=== PATIENT | male | born 1965 | race African-American/Black ===

== ENCOUNTER → 2016-10-05 | Outpatient (CLI) | payer BC ==
[~2016-10-05] MED LIST: LSNUNK; ZCRUNK
[2016-10-05 12:49] LABS: BASO % 0.4 %; BASO ABS # 0.02 K/uL (0-0.2); COMPLETE YES; EOS % 1.4 %; HEMATOCRIT 39.9 % (42-52); IG% 0.2 %; LYMPH % 25.2 %; LYMPH ABS # 1.29 K/uL (1.2-3.4); MEAN CELL VOLUME 89.9 fL (80-100); MEAN CORPUSCULAR HEMOGLOBIN 30.9 pg (25-34); MEAN CORPUSCULAR HGB CONC 34.3 g/dl (32-36); MEAN PLATELET VOLUME 9.6 fL (7.4-10.4); MONO % 12.5 %; NEUT % 60.3 %; PLATELET COUNT 200 K/uL (130-400); RED BLOOD COUNT 4.44 M/uL (4.7-6.1); WHITE BLOOD COUNT 5.12 K/uL (4.8-10.8)
[2016-10-05 13:19] LABS: BLOOD UREA NITROGEN 13 mg/dl (7-18); CALCIUM 9.1 mg/dl (8.5-10.1); CARBON DIOXIDE 28 mmol/L (21-32); CHLORIDE 103 mmol/L (98-107); CREATININE 0.95 mg/dl (0.60-1.40); GLUCOSE 96 mg/dl (70-99); POTASSIUM 3.7 mmol/L (3.5-5.1); SODIUM 140 mmol/L (136-145)
[2016-10-05 13:22] LABS: ALB/GLOB RATIO 1.1 (0.9-2); ALKALINE PHOSPHATASE 50 U/L (45-117); ALT/SGPT 45 U/L (12-78); AST/SGOT 19 U/L (15-37); CHOLESTEROL 202 mg/dl (0-200); CHOLESTEROL/HDL RATIO 2.5; HDL CHOLESTEROL 82 mg/dl; LDL CHOLESTEROL CALCULATED 100 mg/dl; TRIGLYCERIDES 98 mg/dl (0-150); VERY LOW DENSITY LIPOPROT CALC 20 mg/dl
[2016-10-05 13:23] LABS: ESTIMATED AVERAGE GLUCOSE 123 mg/dl; HA1C FLAG Normal (Normal)
== END | disposition home or self-care (01) ==
LOC: C.LABBFT 08:23
PROVIDERS: ATTEND Internal Medicine
DX: I10 Essential (primary) hypertension (principal)

== ENCOUNTER → 2016-10-12 | Outpatient (CLI) | payer BC ==
--- NOTE | 2016-10-12 10:42 | DIAGNOSTIC IMAGING REPORT ---
BILATERAL CAROTID DOPPLER STUDY HISTORY: Visual change. Hypertension. I10 [id number] Transient wear COMPARISON: None. TECHNIQUE: Real-time, grayscale, and color Doppler sonography of the carotid arteries was performed. Imaging reviewed in the transverse and longitudinal planes. All measurements were calculated based on NASCET criteria. FINDINGS: Antegrade flow is seen in the bilateral vertebral arteries. The brachial pressures are hemodynamically similar. Mild plaque formation bilaterally The peak systolic velocity within the right ICA is 52. The right systolic ratio is 0.5. The peak systolic velocity within the left ICA is 49. The left systolic ratio is 0.5. IMPRESSION: Mild plaque formation bilaterally. No significant stenotic process. Electronically signed by: Irvin Villa M.D. 10/12/2016 10:40 AM Dictated Date/Time: 10/12/2016 10:40 AM
== END | disposition home or self-care (01) ==
LOC: C.ULTR 09:45
PROVIDERS: ATTEND Internal Medicine
DX: I10 Essential (primary) hypertension (principal); E78.00 Pure hypercholesterolemia, unspecified; R29.898 Other symptoms and signs involving the musculoskeletal system

== ENCOUNTER → 2016-10-20 | Outpatient (CLI) | payer BC ==
[~2016-10-20] MED LIST changes: +GADAVIST IV PRN
--- NOTE | 2016-10-20 15:05 | DIAGNOSTIC IMAGING REPORT ---
MRI OF THE BRAIN WITHOUT AND WITH IV CONTRAST CLINICAL HISTORY: Transient weakness the right lower extremity. Right leg numbness. Dizziness. COMPARISON STUDY: No previous studies for comparison. TECHNIQUE: MRI of the brain was performed from the vertex to the skull base utilizing various T1 and T2 weighted sequences. Following the IV administration of 8 mL of Gadavist contrast, additional enhanced images were obtained. FINDINGS: Sagittal T1, axial diffusion, proton density and T2 weighted axial, coronal FLAIR, and pre and post axial T1-weighted images were acquired. These were supplemented with post gadolinium coronal T1 weighted images. No intra or extra-axial mass lesions are visualized. Axial diffusion-weighted images reveal no evidence of acute or subacute infarction. There is no evidence of ventricular dilatation. Proton density T2-weighted and FLAIR images reveal no significant intraparenchymal signal abnormalities. There are no abnormal flow voids. There is no evidence of pathologic enhancement. IMPRESSION: Normal MRI of the brain for age Electronically signed by: Silvestre Coon M.D. 10/20/2016 3:03 PM Dictated Date/Time: 10/20/2016 3:00 PM
== END | disposition home or self-care (01) ==
LOC: C.MRI 13:37
PROVIDERS: ATTEND Internal Medicine
DX: R29.898 Other symptoms and signs involving the musculoskeletal system (principal)

== ENCOUNTER → 2017-04-29 | Outpatient (CLI) | payer BC ==
[~2017-04-29] MED LIST changes: -GADAVIST IV PRN
[2017-04-29 17:20] LABS: BASO % 0.2 %; BASO ABS # 0.01 K/uL (0-0.2); COMPLETE YES; EOS % 2.1 %; HEMATOCRIT 40.1 % (42-52); IG% 0.2 %; LYMPH % 19.6 %; LYMPH ABS # 1.01 K/uL (1.2-3.4); MEAN CELL VOLUME 92.2 fL (80-100); MEAN CORPUSCULAR HEMOGLOBIN 30.3 pg (25-34); MEAN CORPUSCULAR HGB CONC 32.9 g/dl (32-36); MEAN PLATELET VOLUME 9.4 fL (7.4-10.4); MONO % 15.9 %; PLATELET COUNT 229 K/uL (130-400); RED BLOOD COUNT 4.35 M/uL (4.7-6.1); WHITE BLOOD COUNT 5.15 K/uL (4.8-10.8)
[2017-04-29 17:46] LABS: ALT/SGPT 39 U/L (12-78); BLOOD UREA NITROGEN 18 mg/dl (7-18); BUN/CREATININE RATIO 18.5 (10-20); CALCIUM 9.2 mg/dl (8.5-10.1); CARBON DIOXIDE 27 mmol/L (21-32); CHLORIDE 104 mmol/L (98-107); CHOLESTEROL 223 mg/dl (0-200); CREATININE 0.95 mg/dl (0.60-1.40); GLUCOSE 88 mg/dl (70-99); POTASSIUM 3.9 mmol/L (3.5-5.1); SODIUM 138 mmol/L (136-145)
[2017-04-29 17:50] LABS: ALB/GLOB RATIO 1.2 (0.9-2); ALKALINE PHOSPHATASE 46 U/L (45-117); AST/SGOT 32 U/L (15-37); CHOLESTEROL/HDL RATIO 1.9; HDL CHOLESTEROL 118 mg/dl; LDL CHOLESTEROL CALCULATED 102 mg/dl; PROSTATE SPECIFIC ANTIGEN 0.214 ng/ml (0.000-4.000); TRIGLYCERIDES 17 mg/dl (0-150); VERY LOW DENSITY LIPOPROT CALC 3 mg/dl
[2017-04-30 06:47] LABS: ESTIMATED AVERAGE GLUCOSE 126 mg/dl; HA1C FLAG Normal (Normal)
== END | disposition home or self-care (01) ==
LOC: C.LABBFT 14:32
PROVIDERS: ATTEND Internal Medicine
DX: E78.00 Pure hypercholesterolemia, unspecified (principal); R73.01 Impaired fasting glucose; Z12.5 Encounter for screening for malignant neoplasm of prostate; I10 Essential (primary) hypertension

== ENCOUNTER → 2017-05-19 | Outpatient (CLI) | payer BC ==
[2017-05-19 17:47] LABS: FERRITIN 265.6 ng/ml (8.0-388.0)
== END | disposition home or self-care (01) ==
LOC: C.LABBFT 14:53
PROVIDERS: ATTEND Internal Medicine
DX: D64.9 Anemia, unspecified (principal)

== ENCOUNTER → 2017-06-16 | Day surgery (SDC) | payer BC ==
[2017-06-07 14:56] VITALS: Ht 180.3 cm; Wt 78.2 kg
[~2017-06-16] VITALS: Ht 180.3 cm; Wt 78.2 kg
[~2017-06-16] MED LIST changes: +ASPCH81X PO; +HYDR25TA4 PO; +IRBE1TAB50 PO; +LIDOCAINE HCL 2% 2 ML VIAL (20MG/ML) ONE; -LSNUNK; +MELO7.5T5 PO; +PROPOFOL IV EMULSION 10 MG/ML 20 ML VIAL IV ONE; +SIMV40TA2 PO; +SODIUM CHLORIDE 0.9% 500ML 500 ML IV ONE; -ZCRUNK
--- NOTE | 2017-06-16 11:03 | Endo History and Physical ---
History & Physical Date of Service: Jun 16, 2017. Chief Complaint: Screening Referring Physician: Ruslan Ji History of Present Illness 52 yo male who presents for screening colonoscopy. Past Surgical History Hx Cardiac Surgery: No Hx Internal Defibrillator: No Hx Pacemaker: No Hx Abdominal Surgery: No Hx of Implantable Prosthesis: No Hx Post-Op Nausea and Vomiting: No Hx Cancer Surgery: No Hx Thoracic Surgery: No Hx Orthopedic: No Hx Urinary Tract Surgery: No Family History None Social History Smoking Status: Never Smoker Hx Substance Use: No Hx Alcohol Use: Yes (2 BEERS DAILY ) Allergies Coded Allergies: No Known Allergies (Unverified , 06/07/17) Current Medications Reported Home Medications Medications Dose Route/Sig Max Daily Dose Days Date Category Mobic (Meloxicam) 7.5 Mg Tab 15 Mg PO DAILY 06/16/17 Reported Hctz (Hydrochlorothiazide) 25 Mg Tab 25 Mg PO QAM 06/07/17 Reported Irbesartan 300 Mg Tab 1 Tab PO QAM 06/07/17 Reported Aspirin Chewable (Aspirin) 81 Mg Chew 81 Mg PO QAM 06/07/17 Reported Zocor (Simvastatin) 40 Mg Tab 40 Mg PO QPM 06/07/17 Reported Vital Signs Weight (Kilograms): 78.18 Height (Feet): 5 Height (Inches): 11 Physical Exam General Appearance: WD/WN, no apparent distress Respiratory/Chest: Auscultation: breath sounds normal Cardiovascular: Heart Auscultation: RRR Abdomen: Bowel Sounds: normal Inspection & Palpation: soft, non-distended, no tenderness, guarding & rebound Assessment and Plan Assessment: 52 yo male who presents for screening colonoscopy. Plan: Proceed with colonoscopy.
[2017-06-16 11:04] VITALS: TEMP 36.5
--- NOTE | 2017-06-16 12:44 | Discharge Instructions ---
Endoscopy Patient Instructions Date / Procedure(s) Performed Jun 16, 2017. Colonoscopy Allergy Information Coded Allergies: No Known Allergies (Unverified , 06/07/17) Discharge Date / Findings Jun 16, 2017. Colon polyp Internal hemorrhoids Medication Instructions Restart Stopped Medication(s): OK to resume all medications today as prescribed Reported Home Medications Medications Dose Route/Sig Max Daily Dose Days Date Category Mobic (Meloxicam) 7.5 Mg Tab 15 Mg PO DAILY 06/16/17 Reported Hctz (Hydrochlorothiazide) 25 Mg Tab 25 Mg PO QAM 06/07/17 Reported Irbesartan 300 Mg Tab 1 Tab PO QAM 06/07/17 Reported Aspirin Chewable (Aspirin) 81 Mg Chew 81 Mg PO QAM 06/07/17 Reported Zocor (Simvastatin) 40 Mg Tab 40 Mg PO QPM 06/07/17 Reported Provider Instructions Activity Restrictions - No exercising or heavy lifting for 24 hours. - Do not drink alcohol the day of the procedure. - Do not drive a car or operate machinery until the day after the procedure. - Do not make any important decisions or sign important papers in 24 hours after the procedure. Following Day: - Return to full activity which may include returning to work/school. Diet Start your diet with liquids and light foods (jello, soup, juice, toast). Then eat your usual diet if not nauseated. Treatment For Common After Affects For mild abdominal pain, bloating, or excessive gas: - Rest - Eat lightly - Lie on right side Follow-Up Information Follow-up with Ruslan Ji as scheduled Anesthesia Information What You Should Know You have had a procedure that required some medicine to reduce anxiety and discomfort. This treatment is called moderate sedation. After receiving the treatment, you may be sleepy, but you will be able to breathe on your own. The effects of the treatment may last for several hours. Follow these instructions along with Activity/Diet recommendations noted above: * Do NOT do anything where dizziness or clumsiness would be dangerous. * Rest quietly at home today, then you can be up and about tomorrow. * Have a responsible person stay with you the rest of today. * You may have had an I.V. today. If so, you may take the dressing off later today. Recommendations Call your doctor if: * Trouble breathing * Continuous vomiting for more than 24 hours * Temperature above 101 degrees * Severe abdominal pain or bloating * Pain not relieved by pain medicine ordered * There is increased drainage or redness from any incision * A large amount of rectal bleeding greater than 2-3 tablespoons. (If you had a polyp/s removed or have hemorrhoids, a small amount of blood - from the rectum is to be expected.) * You have any unanswered questions or concerns. IN THE EVENT OF A SERIOUS EMERGENCY, GO TO THE NEAREST EMERGENCY ROOM Your discharge instructions were prepared by provider Bradley Andrade. Patient Instructions Signature Page Giovanni Kyle Patient (or Guardian) Signature/Date: I have read and understand the instructions given to me by my caregivers. Caregiver/RN/Doctor Signature/Date: The above-named patient and/or guardian has received patient instructions on this date. + Original Patient Signature Page (only) stays with chart. Please make copy for patient.
--- NOTE | 2017-06-16 12:47 | GI REPORT ---
Procedure Date: 06/16/2017 12:00 PM Procedure: Colonoscopy Indications: Screening for colorectal malignant neoplasm Medicines: Monitored Anesthesia Care Complications: No immediate complications. Estimated Blood Loss: Estimated blood loss: none. Procedure: Pre-Anesthesia Assessment: - Prior to the procedure, a History and Physical was performed, and patient medications and allergies were reviewed. The patient's tolerance of previous anesthesia was also reviewed. The risks and benefits of the procedure and the sedation options and risks were discussed with the patient. All questions were answered, and informed consent was obtained. Prior Anticoagulants: The patient has taken aspirin, last dose was 1 day prior to procedure. ASA Grade Assessment: II - A patient with mild systemic disease. After reviewing the risks and benefits, the patient was deemed in satisfactory condition to undergo the procedure. After I obtained informed consent, the scope was passed under direct vision. Throughout the procedure, the patient's blood pressure, pulse, and oxygen saturations were monitored continuously. The Scope was introduced through the anus and advanced to the terminal ileum. The colonoscopy was performed without difficulty. The patient tolerated the procedure well. The quality of the bowel preparation was good. The terminal ileum, the ileocecal valve and the rectum were photographed. Findings: The perianal and digital rectal examinations were normal. A 12 mm polyp was found in the ascending colon. The polyp was sessile. The polyp was removed with a hot snare. Resection and retrieval were complete. Non-bleeding internal hemorrhoids were found during retroflexion. The hemorrhoids were small. Impression: - One 12 mm polyp in the ascending colon, removed with a hot snare. Resected and retrieved. - Non-bleeding internal hemorrhoids. Recommendation: - Resume previous diet. - Continue present medications. - Repeat colonoscopy for surveillance based on pathology results. - Return to primary care physician as previously scheduled. Bradley Andrade, 06/16/2017 12:46:52 PM This report has been signed electronically. Note Initiated On: 06/16/2017 12:00 PM I attest to the content of the Intraoperative Record and orders documented therein, exceptions below
[2017-06-16 13:17] VITALS: BP 130/96; PULSE 60; O2SAT 99
--- NOTE | 2017-06-16 13:21 | Anesthesiology Progress Note ---
Anesthesia Post Op Note Date & Time Jun 16, 2017 at 13:20 Vital Signs Pain Intensity: 0 Vital Signs Past 12 Hours Date Time Temp Pulse Resp B/P (MAP) Pulse Ox O2 Delivery O2 Flow Rate FiO2 06/16/17 13:17 60 18 130/96 (107) 99 Room Air 06/16/17 13:02 72 18 127/96 (106) 95 Room Air 06/16/17 12:47 81 16 117/82 (94) 97 Room Air 06/16/17 11:04 36.5 84 18 149/98 (115) 99 Room Air Notes Mental Status: alert / awake / arousable, participated in evaluation Nausea / Vomiting: adequately controlled Pain: adequately controlled Airway Patency, RR, SpO2: stable & adequate BP & HR: stable & adequate Hydration State: stable & adequate Anesthetic Complications: no major complications apparent
== END | disposition home or self-care (01) ==
LOC: C.GI 10:24
PROVIDERS: ATTEND Internal Medicine
DX: Z12.11 Encounter for screening for malignant neoplasm of colon (principal); D12.2 Benign neoplasm of ascending colon; K64.8 Other hemorrhoids; Z79.82 Long term (current) use of aspirin; Z79.899 Other long term (current) drug therapy

== ENCOUNTER 2020-01-30 09:04 | Observation (INO) ==
--- NOTE | 2020-01-19 11:47 | PAT Medication Instructions ---
Medication Instructions Date of Service January 19, 2020 Home Medications Medication Instructions Recorded irbesartan 300 mg tablet 300 mg PO QAM #90 tab 12/26/19 aspirin 81 mg tablet,delayed release 81 mg PO QAM atorvastatin 20 mg PO QPM hydrochlorothiazide 50 mg PO QAM irbesartan 300 mg tablet 300 mg PO QAM DO NOT take the morning of surgery hydrochlorothiazide 50 mg PO QAM irbesartan 300 mg tablet 300 mg PO QAM Take morning of surgery With a small sip of water, OTHERWISE NOTHING TO EAT OR DRINK AFTER MIDNIGHT: aspirin 81 mg tablet,delayed release 81 mg PO QAM Take evening before surgery atorvastatin 20 mg PO QPM Other Notes If you have any questions please call us at [phone] or [phone] or [phone] or [phone]
--- NOTE | 2020-01-22 12:57 | Anesthesiology Consultation ---
Date of Service January 22, 2020 Assessment & Plan (1) Encounter for pre-operative examination: Labs forwarded to PCP and will recheck K+ AM DOS. Chart Review Chart Review: Acceptable Risk for Surgery and Patient seen in Pre Admission Testing Teaching & Discussion Instructed NPO after midnight before surgery, except medications with 15 cc of water. Medication instructions provided according to the PAT guidelines. History Surgery Operation Date: 12/22/19 07:00 Proposed Procedures p Right Uni Compartment KNee Arthroplasty - Gerard Templeton DO Operation Date: 01/30/20 12:45 Proposed Procedures p Right Knee Uni Compartment Arthroplasty - Gerard Templeton DO Height/Weight Height: 5 ft 11 in Weight: 83.1 kg Allergies Allergy/AdvReac Type Severity Reaction Status Date / Time JENISE Inhibitors Allergy Intermediate Cough Verified 01/22/20 11:45 Medications Home Medications Medication Instructions Recorded Confirmed Last Taken aspirin 81 mg tablet,delayed 81 mg PO QAM 09/14/19 01/22/20 Unknown release atorvastatin 20 mg PO QPM 11/20/19 01/22/20 Unknown hydrochlorothiazide 50 mg PO QAM 11/20/19 01/22/20 Unknown irbesartan 300 mg tablet 300 mg PO QAM #90 tab 12/26/19 01/22/20 Unknown Past Medical History Medical History [place] disease "VERY MILD" only slight tremors Hyperlipidemia Hypertension Leiomyoma (~06/16/17) colon Osteoarthritis Tremors of nervous system Exercise / Class Metabolic Activity II 4-5 Yardwork/Stairs/Walk up hill Past Family History Family History Grandmother (Maternal) Diabetes Alzheimer disease Hypertension Father Cancer Grandfather (Maternal) Diabetes Past Surgical History Surgical History History of anesthesia reaction SLIGHT COMBATIVENESS WITH ORAL SURGERY History of colonoscopy (~06/16/17) repeat in 5 years [place] teeth removed Past Anesthesia History No Hx of Anesthesia Complications and No Family Hx of Anesthesia Complications PT REPORTS SOME COMABATIVE BEHAVIOR POST OP AFTER ORAL SURGERY. History of PONV No Hx of Motion Sickness and History of PONV Social History Smoking Status: Never smoker tobacco type: cigars Smoking cigarettes per day: OCCAS. CIGAR USE (LAST USED NOVEMBER 2019) Do You Dip or Chew Tobacco: No Hx Alcohol Use: Yes Alcohol type: beer alcohol intake frequency: 3 or more drinks per day Alcohol Intake Frequency Comment: 5 BEERS DAILY ON AVERAGE, AFTER WORK ONLY Hx Substance Use: No substance use type: does not use Review of Systems Pt denies any recent chest pain, shortness of breath, palpitations, cough, fever or URI. Physical Exam Vital Signs BP: 153/100 (pt is VERY anxious and did not take his BP meds yet today) P: 112bpm SPO2: 97% RA T: 98.2 F R: 16 ENMT Mouth: no dental restorations, no chipped teeth and no loose teeth Thyromental Distance: > or= 3.5 Finger Breadths (3.5) Mallampati Class: I Neck normal visual inspection; neck extension not limited Respiratory normal respiratory effort Auscultation: lungs clear to auscultation bilaterally Cardiovascular Rate/Rhythm: regular rhythm and + tachycardic Heart Sounds: no murmur Vessels: no carotid bruit Testing Laboratory Results 01/22/20 12:42 01/22/20 12:42 PT 10.8 Seconds (9.0-12.0) 01/22/20 12:42 INR 1.0 (0.9-1.1) 01/22/20 12:42 APTT 27.8 Seconds (21.0-31.0) 01/22/20 12:42 Blood Type A Negative 01/22/20 12:42 Antibody Screen NEGATIVE 01/22/20 12:42 Electrocardiogram Date: 01/22/20 Findings: + ST @ (103bpm) Possible left atrial enlargement. LVH. Chest X-Ray Date: 09/14/19 Findings: + NAD
[2020-01-22 14:34] LABS: Basophils # (auto) 0.02 K/uL (0-0.2); Basophils % (auto) 0.3 %; Eosinophils # (auto) 0.01 K/uL (0-0.5); Eosinophils % (auto) 0.1 %; Hematocrit (blood only) 40.2 % (42-52); Hemoglobin 13.6 g/dL (14.0-18.0); Immature Granulocytes # (auto) 0.01 K/uL (0.00-0.02); Immature Granulocytes % (auto) 0.1 %; Lymphocytes # (auto) 1.17 K/uL (1.2-3.4); Lymphocytes % (auto) 16.3 %; Mean Corpuscular Hemoglobin 32.1 pg (25-34); Mean Corpuscular Hgb Conc 33.8 g/dL (32-36); Mean Corpuscular Volume 94.8 fL (80-100); Mean Platelet Volume 9.7 fL (7.4-10.4); Monocytes # (auto) 0.84 K/uL (0.11-0.59); Monocytes % (auto) 11.7 %; Neutrophils # (auto) 5.13 K/uL (1.4-6.5); Neutrophils % (auto) 71.5 %; Platelet Count 251 K/uL (130-400); RDW Coefficient of Variation 13.7 % (11.5-14.5); RDW Standard Deviation 47.4 fL (36.4-46.3); Red Blood Count 4.24 M/uL (4.7-6.1); White Blood Count 7.18 K/uL (4.8-10.8)
--- NOTE | 2020-01-22 14:36 | Electrocardiogram Report ---
Test Reason : Blood Pressure : / mmHG Vent. Rate : 103 BPM Atrial Rate : 103 BPM P-R Int : 148 ms QRS Dur : 092 ms QT Int : 354 ms P-R-T Axes : 066 077 037 degrees QTc Int : 463 ms Sinus tachycardia Possible Left atrial enlargement Left ventricular hypertrophy Abnormal ECG No previous ECGs available Confirmed by Dillon Garcia ([id number]) on 01/22/2020 2:36:04 PM Referred By: Gerard Templeton Confirmed By:Dillon Garcia
[2020-01-22 14:41] LABS: BUN Creatinine Ratio 13.7 (10-20); Calcium 9.4 mg/dl (8.5-10.1); Creatinine Clr Calc Pharmacy 105.8 ml/min; Est GFR (African American) 114.5; Est GFR (Non-African American) 98.8; Potassium 3.1 mmol/L (3.5-5.1)
[2020-01-22 14:43] LABS: Partial Thromboplastin Time 27.8 Seconds (21.0-31.0); Prothrombin Time 10.8 Seconds (9.0-12.0)
--- NOTE | 2020-01-29 16:35 | History & Physical Report ---
Date of Service January 29, 2020 Assessment & Plan (1) Osteoarthritis of right knee: We will proceed with a right partial knee replacement. Postoperatively he will be started on aspirin for DVT prophylaxis and kept overnight in the hospital for postoperative medical management. He plans to use outpatient physical therapy upon discharge. Chirag is a low risk for joint placement surgery without any major comorbidities. 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 He has been dealing with a lot of medial sided right knee pain. He has had multiple aspirations and injections by Dr. Prescott. Unfortunately he continues to have pain. X-rays and clinical examination have been diagnostic for primary osteoarthritis of the medial compartment of the right knee. After failing conservative treatment, he has elected to proceed with a right partial knee replacement surgery. Allergies Allergy/AdvReac Type Severity Reaction Status Date / Time JENISE Inhibitors Allergy Intermediate Cough Verified 01/22/20 11:45 Home Medications Home Medications Medication Instructions Recorded Confirmed Type aspirin 81 mg tablet,delayed 81 mg PO QAM 09/14/19 01/22/20 History release atorvastatin 20 mg PO QPM 11/20/19 01/22/20 History hydrochlorothiazide 50 mg PO QAM 11/20/19 01/22/20 History irbesartan 300 mg tablet 300 mg PO QAM #90 tab 12/26/19 01/22/20 Rx Past Med/Surg History Medical History [place] disease "VERY MILD" only slight tremors Hyperlipidemia Hypertension Leiomyoma (~06/16/17) colon Osteoarthritis Tremors of nervous system Surgical History History of anesthesia reaction SLIGHT COMBATIVENESS WITH ORAL SURGERY History of colonoscopy (~06/16/17) repeat in 5 years [place] teeth removed Family History Grandmother (Maternal) Diabetes Alzheimer disease Hypertension Father Cancer Grandfather (Maternal) Diabetes Social History Preferred Language: [place] Communication Ability: Effective Pharmaceutical Worker Required: No Beliefs That Will Affect Care: None marital status: Current Living Situation: Spouse Feels Safe at Home: Yes Safety Concerns: Feels Safe At This Time Smoking Status: Never smoker Tobacco Type: cigars ; Cigarettes Per Day: OCCAS. CIGAR USE (LAST USED NOVEMBER 2019) ; Do You Dip or Chew Tobacco: No ; Second Hand Exposure: No ; Tobacco Cessation Education Requested by Patient: No Hx Alcohol Use: Yes Alcohol type: beer Hx Substance Use: No Review of Systems Review of Systems: All systems reviewed & are unremarkable except as noted in HPI & below Physical Exam Constitutional: WD/WN, vitals as above Eyes: PERRL, conjunctivae normal, anicteric sclerae ENMT: external ear and nose normal, oropharynx normal Neck: trachea midline, no thyromegaly Respiratory: normal respiratory effort Cardiovascular: RRR, no murmur, no edema Gastrointestinal (Abdomen): normal bowel sounds, soft, nontender, no hepatosplenomegaly Musculoskeletal: On physical examination of the right knee there is a trace effusion. There is near full range of motion and no evidence of instability. There is significant tenderness palpation along the medial and lateral joint lines and over the distal femoral condyles. Psychiatric: A+Ox3, euthymic affect Results & Data Results & Data ([facility]) Diagnostic Findings Radiographs of the right knee demonstrate advanced osteoarthritis with joint space narrowing osteophyte formation and [id number] articulation. PG Care Time/CCT Total # of Minutes Spent Total Time Spent with Patient: Total time spent is greater than 50% in coordination of care (as documented) at patient's floor/unit and/or counseling patient: Coding Level of Care Code 21167 Initial Inpt Care Lvl 3 Diagnoses Osteoarthritis of right knee M17.11
[~2020-01-30 09:04] MED LIST changes: +ACETAMINOPHEN 500 MG TAB PO SCH; -ASPCH81X PO; +BUPIVACAINE 0.25% 30 ML VIAL ONE; +BUPIVACAINE 0.5 % 5 MG/1 ML PF 10ML VIAL ONE; +CEFAZOLIN 2000MG 2,000 MG/15 ML SYR IV SCH; +FAMOTIDINE 20 MG TAB PO SCH; +GABAPENTIN 900 MG DOSE PO SCH; -HYDR25TA4 PO; -IRBE1TAB50 PO; -LIDOCAINE HCL 2% 2 ML VIAL (20MG/ML) ONE; +LR 500ML BOLUS, THEN 15ML/HR IV SCH; +LR 60ML/HR IV SCH; -MELO7.5T5 PO; -PROPOFOL IV EMULSION 10 MG/ML 20 ML VIAL IV ONE; +ROPIVACAINE 0.5% HCL/PF 150 MG, BUPIVACAINE 0.5% MPF 30 ML, EPINEPHrine 30MG/30ML (OR U... INFIL SCH; -SIMV40TA2 PO; -SODIUM CHLORIDE 0.9% 500ML 500 ML IV ONE; +TRANEXAMIC ACID 1,000 MG **IV Intra-op IV SCH; +TRANEXAMIC ACID 1,000 MG **IV Pre-op IV SCH; +dexAMETHasone 4 MG TAB PO SCH
--- NOTE | 2020-01-30 09:25 | History & Physical Bridge Note ---
Date of Service January 30, 2020 History & Physical Bridge Note I have examined the patient, reviewed the History & Physical and in the interval since the performance of the History & Physical I have noted the following changes of clinical significance: no changes noted
[2020-01-30] MEDS ORDERED: fentaNYL citrate 100 MCG/2 ML VIAL ONE (09:39)
[2020-01-30] MEDS ORDERED: MIDAZOLAM HCL 1 MG/ML 2ML VIAL ONE ×2 (09:39)
[2020-01-30] MEDS ORDERED: ORTHO JOINT ANESTHETIC ONE (10:05)
[2020-01-30] MEDS ORDERED: PROPOFOL IV EMULSION 10 MG/ML 20 ML VIAL IV ONE ×4 (10:56→12:19)
[2020-01-30] MEDS ORDERED: PHENYLEPHRINE HCL 10 MG/ML VIAL ONE (11:31)
--- NOTE | 2020-01-30 13:05 | Operative Report ---
PG Post Operative Report Pre & Post Diagnosis Operation Date: 12/22/19 07:00 <No data on this case meets the specified criteria> Operation Date: 01/30/20 10:40 Pre-Op Diagnosis: Right Knee Osteoarthritis Post-Op Diagnosis: Right Knee Osteoarthritis I identified the patient and participated in the time-out.: Yes Procedure Operation Date: 12/22/19 07:00 <No data on this case meets the specified criteria> Operation Date: 01/30/20 10:40 Actual Procedures p Right Total Knee Arthroplasty(Right) - Gerard Templeton DO Surgeon Gerard Templeton, Patient Access Specialist Gerrad Slater PAC Estimated Blood Loss 10 Findings Consistent with Post-Op Diagnosis Specimens Right femoral and tibial bone Complications none Disposition Disposition: Recovery Room Indications Chirag is a pleasant 55-year-old male who is been dealing with chronic increasing right knee pain and effusions. He has had multiple aspirations and injections. X-rays showed medial compartmental arthritis of the right knee. After failing conservative treatment, he elected to proceed with a right unicompartmental knee arthroplasty versus total knee arthroplasty.. Description of Procedure Implants used: I used a [employer] Vanguard total knee arthroplasty system with a size 70 femur, 79 tibia, 31 patella, and a size 18 PS plus polyethylene bearing. All components were cemented in place with Palacos G cement. Risks arrived [facility] for the above procedure. He was seen in the preoperative holding area and the operative extremity was identified and signed. He was given a preoperative antibiotic, TXA, a spinal anesthetic and an adductor nerve block. He was taken back to the operating room and laid on the table in supine position. He was given basic sedation. The operative knee was then prepped and draped in sterile fashion. A timeout was done, and the patient and the operative extremity was properly identified. A midline incision was made directly over the patella. Dissection was taken down to the extensor mechanism. A subvastus arthrotomy was used. The medial retinaculum was released and the fat pad was mostly excised. The knee was then flexed. The tibia was cut for a unicompartmental knee arthroplasty. I then milled a little bit of the distal femur. I placed the initial trial femur and the initial trial tibia. I did this to assessment flexion and extension gaps. Unfortunately there was too much deformity of the knee to balance my flexion extension gaps. I also noticed some arthritis of the distal lateral femoral condyle. Given the increased deformity of his right knee and given the arthritis of the distal lateral femoral condyle, I decided to proceed with a right total knee arthroplasty. I then called his from the operating room and told her what was going on and she consented to proceed with a right total knee arthroplasty. A drill was sent down the center of the femoral canal followed by an intramedullary adri. Off that adri a distal femoral cutting block was placed. 9 mm was resected off the distal femur at 5 of valgus. A posterior referencing AP sizing guide was then placed on the distal femur. The femur measured to be a size 70. 2 drill holes were placed in 3 of external rotation. A 4-in-1 cutting block was then impacted into place. Anterior, posterior, and chamfer cuts were then made. The posterior stabilizing box guide was then impacted into place and the box was resected for the posterior stabilizing component. The proximal tibia was then exposed. A drill was sent down the center of the tibial canal followed by an intramedullary adri. Off that adri a proximal tibial resection guide was placed. The proximal tibia was then resected. The tibia measured to be a size 79. The tibial plate was then placed in the appropriate rotation and the tibia was punched. The posterior aspect of the knee was then opened up and any additional meniscus fragments and osteophytes were removed. T rial components were then placed. I used a size 18 PS plus polyethylene insert. The knee was brought through a full range of motion and felt to be stable. The patella was then everted and 8 mm was resected off the posterior aspect of the patella. The patella measured to be a size 31. 3 peg holes were then drilled. A trial patella was placed. The knee was once again brought through a full ra nge of motion and felt to be stable. Trial components were then removed. The surrounding soft tissues were injected with 100 cc of an orthopedic pain control cocktail. All components were then cemented into place with Palacos G cement. The final polyethylene insert was then snapped into place and the anterior bar was locked. Once cement was dry the tourniquet was deflated. Hemostasis was obtained. A dilute betadyne lavage was then done for 3 minutes. The joint was then irrigated with normal saline solution. The subvastus arthrotomy was then closed with #1 Vicryl suture. The skin was closed with 2-0 Vicryl, 3-0V lock suture, and paulo. A soft compressive dressing was placed. He was then transferred to a hospital bed and taken to the postanesthesia care unit in stable condition. He tolerated the procedure well. Gerard Slater PA-C, was present for the entire procedure. He was critical for patient positioning, prepping, draping, retraction exposure, wound closure and application of sterile dressing. I attest to the content of the Intraoperative Record and any orders documented therein. Any exceptions are noted below.
--- NOTE | 2020-01-30 13:50 | XRay Report ---
RIGHT KNEE 2 VIEWS History: Right total knee arthroplasty. Degenerative arthritis. Postop. FINDINGS: The patient is status post a right total knee arthroplasty. The hardware is intact. No frac ture or dislocation. Skin paulo are in place. IMPRESSION: Right total knee arthroplasty. No evidence for hardware complication. ACT 112: Negative or not required by law. Electronically signed by: Gordy Hale M.D. 01/30/2020 1:48 PM
[2020-01-30] MEDS ORDERED: ONDANSETRON INJ 2 MG/ML 2 ML VIAL IV PRN (15:10)
[2020-01-30] MEDS ORDERED: NALOXONE HCL 0.4 MG/1 ML VIAL/CARP IV PRN (15:10)
[2020-01-30] MEDS ORDERED: bisacodyL 10 MG SUPP PR PRN (15:10)
[2020-01-30] MEDS ORDERED: MAGNESIUM HYDROXIDE SUSP 30 ML UDC PO PRN (15:10)
[2020-01-30] MEDS ORDERED: METOCLOPRAMIDE HCL INJ 5 MG/ML 2 ML VIAL IV PRN (15:10)
[2020-01-30] MEDS: SODIUM CHLORIDE 0.9% 1000ML 1,000 ML IV SCH (15:54)
[2020-01-30] MEDS: KETOROLAC 30 MG/ML VIAL IV SCH ×2 (15:55→21:09)
[2020-01-30] MEDS: ACETAMINOPHEN 500 MG TAB PO SCH ×2 (15:55→21:08)
--- NOTE | 2020-01-30 16:07 | Anesthesiology Progress Note ---
Date of Service January 30, 2020 Anesthesia Post Procedure Vital Signs Vital Signs: Temp Pulse Pulse Pulse Resp BP BP 01/30/20 15:58 36.4 C L 51 L 16 01/30/20 15:39 36.4 C L 65 16 155/93 H 01/30/20 15:00 36.4 C L 71 127/85 01/30/20 14:35 73 12 136/82 01/30/20 14:20 68 13 123/95 01/30/20 14:05 36.1 C L 81 18 119/87 01/30/20 13:55 57 L 14 129/88 01/30/20 13:45 59 L 12 116/93 01/30/20 13:35 76 13 117/85 01/30/20 13:26 36.0 C L 79 21 113/85 01/30/20 10:04 82 18 157/100 H 01/30/20 09:26 36.9 C 96 H 20 157/103 H Pulse Ox 01/30/20 15:58 100 01/30/20 15:39 100 01/30/20 15:00 100 01/30/20 14:35 100 01/30/20 14:20 100 01/30/20 14:05 97 01/30/20 13:55 100 01/30/20 13:45 100 01/30/20 13:35 99 01/30/20 13:26 100 01/30/20 10:04 100 01/30/20 09:26 98 Pain Intensity Right Knee: Pain Intensity: 0 Transfer of Care Handoff Completed per policy Notes Mental Status: alert / awake / arousable and participated in evaluation Patient Amnestic to Procedure: Yes Nausea / Vomiting: adequately controlled Pain: adequately controlled Airway Patency, RR, SpO2: stable & adequate BP & HR: stable & adequate Hydration State: stable & adequate Neuraxial Anesthesia: was administered and sensory block is resolving Anesthetic Complications: no major complications apparent and Pt Satisfied with anesthetic care
[2020-01-30] MEDS: CEFAZOLIN 2000MG 2,000 MG/15 ML SYR IV SCH (17:35)
[2020-01-30] MEDS ORDERED: SENNA 8.6 MG TAB PO SCH (21:00)
[2020-01-30] MEDS ORDERED: ATORVASTATIN 20 MG TAB PO SCH (21:00)
[2020-01-30] MEDS: ASPIRIN 81 MG ECTAB PO SCH (21:08)
[2020-01-30] MEDS: DOCUSATE SODIUM 100 MG CAP PO SCH (21:08)
[2020-01-31] MEDS: CEFAZOLIN 2000MG 2,000 MG/15 ML SYR IV SCH (02:01)
[2020-01-31] MEDS: SODIUM CHLORIDE 0.9% 1000ML 1,000 ML IV SCH (02:01)
[2020-01-31] MEDS: KETOROLAC 30 MG/ML VIAL IV SCH ×2 (05:25→09:01)
[2020-01-31] MEDS: ACETAMINOPHEN 500 MG TAB PO SCH (05:25)
[2020-01-31 06:29] LABS: Hematocrit (blood only) 33.1 % (42-52); Hemoglobin 11.1 g/dL (14.0-18.0); Mean Corpuscular Hemoglobin 31.2 pg (25-34); Mean Corpuscular Hgb Conc 33.5 g/dL (32-36); Mean Platelet Volume 8.9 fL (7.4-10.4); Platelet Count 211 K/uL (130-400); RDW Coefficient of Variation 13.2 % (11.5-14.5); RDW Standard Deviation 44.6 fL (36.4-46.3); Red Blood Count 3.56 M/uL (4.7-6.1); White Blood Count 10.69 K/uL (4.8-10.8)
--- NOTE | 2020-01-31 06:51 | Orthopedic Progress Note ---
Date of Service January 31, 2020 Assessment & Plan (1) History of total right knee replacement: Overall he is doing well. He is not having too much pain in the right knee. I did talk to him extensively about why we abandon the partial knee replacement and decide to place a full knee replacement. He seemed grateful that we did what was best for his knee. He will be seen by physical therapy today for ambulation and range of motion exercises. He can be discharged home later today. He will follow-up with orthopedics in 2 weeks. He is on aspirin for DVT prophylaxis. Present on Admission?: Yes Subjective Chirag was seen and examined at bedside this morning. Overall he is doing well. He has been up and ambulating to the bathroom. He is not having too much pain in the right knee. He has no complaints. Physical Exam Musculoskeletal: On physical examination of the right knee, the dressing has a little bit of bloody discharge and has been reinforced. His right leg is out to full extension. Results & Data ([facility]) Vital Signs (Past 12 Hours) Vital Signs Temp Pulse Resp BP BP Pulse Ox 01/31/20 03:27 36.6 C 72 18 142/84 H 95 01/30/20 23:15 36.3 C L 96 H 20 136/85 97 01/30/20 19:55 36.5 C 58 L 16 144/87 H 100 Laboratory Results H & H 01/22/20 01/31/20 Range/Units 12:42 06:08 Hgb 13.6 L 11.1 L (14.0-18.0) g/dL Hct 40.2 L 33.1 L (42-52) % Coagulation 01/22/20 Range/Units 12:42 INR 1.0 (0.9-1.1) Diagnostic Findings Postoperative x-rays of the right knee show the prosthesis to be in anatomic alignment without any evidence of fracture, dislocation, or loosening. PG Care Time/CCT Total # of Minutes Spent Total Time Spent with Patient: Total time spent is greater than 50% in coordination of care (as documented) at patient's floor/unit and/or counseling patient: Coding Level of Care Code None Diagnoses History of total right knee replacement Z96.651
[2020-01-31 06:52] LABS: BUN Creatinine Ratio 18.1 (10-20); Calcium 8.1 mg/dl (8.5-10.1); Creatinine Clr Calc Pharmacy 97.7 ml/min; Est GFR (African American) 109.6; Est GFR (Non-African American) 94.5; Potassium 3.7 mmol/L (3.5-5.1)
--- NOTE | 2020-01-31 06:52 | Discharge Summary ---
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 He has been dealing with a lot of medial sided right knee pain. He has had multiple aspirations and injections by Dr. Prescott. Unfortunately he continues to have pain. X-rays and clinical examination have been diagnostic for primary osteoarthritis of the medial compartment of the right knee. After failing conservative treatment, he has elected to proceed with a right partial knee replacement surgery. Principal Diagnosis Right total knee arthroplasty Discharge Data Allergies Allergy/AdvReac Type Severity Reaction Status Date / Time JENISE Inhibitors Allergy Intermediate Cough Verified 01/30/20 09:32 Consultations 01/30/20 15:10 Consult Case Management - Discharge Planning Routine Procedures Performed Operation Date: 12/22/19 07:00 <No data on this case meets the specified criteria> Operation Date: 01/30/20 10:40 Actual Procedures p Right Total Knee Arthroplasty(Right) - Gerard Templeton DO Ordered Studies 01/30/20 05:00 US - OR guided needle placemen Routine Hospital Course (1) History of total right knee replacement: On January 30, [address] [facility] and underwent a right total knee arthroplasty without complication. He had a spinal anesthetic. Postoperatively he was started on aspirin for DVT prophylaxis and transferred to the general orthopedic floors. His hospital course was uneventful. On postop day #1 his H&H was stable and his pain was well controlled. He was able to participate well with physical therapy doing ambulation and range of motion exercises. He was then discharged home. He will follow-up with orthopedics in 2 weeks. Total Time Total Time Spent Total Time Spent (In Minutes): 20 Discharge Plan Discharge Items Patient Disposition: Home - Home Health Services Reason For Visit: Right Knee Degenerative Joint Disease Discharge Diagnosis: Right total knee arthroplasty Activity: As commented below Non-emergency contact: Surgeon Call non-emergency contact if: your wound has increased redness and your wound has increased drainage Follow-up/Referrals: Ruslan Ji III, MD [Primary Care Provider] - Diet: Regular Addtl Attending Provider Instructions: Activity and Therapy Recommendations: * If you are using [facility] then therapy will be provided at your home until they feel you have accomplished all of your goals. * If you are using [facility] then Physical Therapy will be provided until they feel you are ready to start Outpatient Physical Therapy. * If you are not using home therapy then Outpatient Physical Therapy should start about 3-5 days from your day of surgery. Therapy will last about 6-10 weeks * It is important not to put a pillow under your knee when you are relaxing or sleeping. It is just as important to make sure you are getting your knee perfectly straight as it is to regain your knee bend. * You were shown a series of exercises in the hospital. Do these exercises three times each day including the exercises you were shown in physical therapy. * Get up and walk several times each day. For the first four weeks, try not to stand or walk for more than one hour at a time. If you do stand or walk for more than one hour, you will not hurt anything, but your leg will likely swell. * As you feel comfortable, you may change from the walker or crutches to a cane and then to independent walking. Medications: * Narcotic You will likely be sent home from the hospital with a prescription for the narcotic pain medication that worked best throughout your stay. * Aspirin Most patients will be required to take Aspirin 81mg twice a day for 6 weeks after surgery. This is obtained [id number] and a prescription is not necessary. * Other medications may be prescribed for specific circumstances. If you have any questions, please call the office at . * Resume previous home medications unless otherwise instructed TEDs/Elastic Stockings: The white elastic stockings help limit swelling and prevent blood clots from forming in your legs.~ The more you wear them, the more they work. Wear them for six weeks. Dressing Care: Leave the Silverlon dressing on for 7 days. After 7 days you may remove the dressing. IF the incision is not draining then you may leave the paulo open to air. If there is a little bit of drainage or if the paulo are getting stuck on your clothing then cover the incision with a dry dressing. The paulo will be removed at your 2 week follow-up appointment. Showering: You may shower with the Silverlon dressing in place. Do not scrub or soak the dressing. Pat it dry. After 7 days you may remove the Silverlon dressing and shower with the paulo exposed. Let the soapy shower water run over the paulo and pat them dry. Do not scrub or soak the incision. Things To Watch For: * Drainage from the incision site that occurs more than one week after your surgery. * Increased redness at the incision site. * Fever above 102 degrees Fahrenheit. * Unusual chest pain or shortness of breath. * Call [facility] at with any of the above problems Follow-Up Visit: Follow-up with Dr. Templeton's PA (Gerard Slater) 2-3 weeks after your day of surgery. He will remove your paulo and answer any questions. If you have any additional questions or concerns, Dr Templeton is usually in the office at the same time and will be available An appointment was probably scheduled when you signed-up for surgery in the office. If you have any questions call Office Instructions: More detailed instructions as well as Frequently Asked Questions were provided in a folder by our office when you signed-up for surgery. Please review these instructions when you get home. If you have any further questions or concerns, please feel free to call the office at [phone] Pending Studies at Discharge: No Stand-Alone Forms: [facility], Smoking Cessation Medications and DC Order Prescriptions: New oxycodone 5 mg Tablet 5 mg PO Q4H PRN (Reason: pain) Qty: 30 RF: 0 Continued irbesartan 300 mg tablet 300 mg PO QAM Qty: 90 RF: 3 atorvastatin 20 mg tablet 20 mg PO QPM RF: 0 hydrochlorothiazide 50 mg tablet 50 mg PO QAM RF: 0 Changed aspirin 81 mg tablet,delayed release (/EC) 81 mg PO BID 42 Days Qty: 0 RF: 0 Discharge Orders: Discharge Order (Routine); Ordered 01/31/20 Ordered By: Gerard Templeton Admission Data Admit Date/Time: 01/30/20 13:27 Attending Provider: Gerard Templeton Admit Provider: Gerard Templeton Primary Care Provider: Ruslan Ji III Coding Level of Care Code D/C Day Management <30 mins Diagnoses History of total right knee replacement Z96.651
[2020-01-31] MEDS: ASPIRIN 81 MG ECTAB PO SCH (07:25)
[2020-01-31] MEDS: DOCUSATE SODIUM 100 MG CAP PO SCH (07:26)
[2020-01-31] MEDS ORDERED: dexAMETHasone 4 MG TAB PO SCH (08:00)
--- NOTE | 2020-01-31 08:38 | Anesthesiology Progress Note ---
Date of Service January 31, 2020 Anesthesia Post Procedure Vital Signs Vital Signs: Temp Pulse Pulse Pulse Resp BP BP 01/31/20 07:26 36.6 C 75 16 147/91 H 01/31/20 03:27 36.6 C 72 18 142/84 H 01/30/20 23:15 36.3 C L 96 H 20 136/85 01/30/20 19:55 36.5 C 58 L 16 144/87 H 01/30/20 17:57 36.6 C 66 16 136/95 01/30/20 16:54 36.4 C L 60 16 152/97 H 01/30/20 15:58 36.4 C L 51 L 16 01/30/20 15:39 36.4 C L 65 16 155/93 H 01/30/20 15:00 36.4 C L 71 127/85 01/30/20 14:35 73 12 136/82 01/30/20 14:20 68 13 123/95 01/30/20 14:05 36.1 C L 81 18 119/87 01/30/20 13:55 57 L 14 129/88 01/30/20 13:45 59 L 12 116/93 01/30/20 13:35 76 13 117/85 01/30/20 13:26 36.0 C L 79 21 113/85 01/30/20 10:04 82 18 157/100 H 01/30/20 09:26 36.9 C 96 H 20 157/103 H Pulse Ox 01/31/20 07:26 99 01/31/20 03:27 95 01/30/20 23:15 97 01/30/20 19:55 100 01/30/20 17:57 100 01/30/20 16:54 100 01/30/20 15:58 100 01/30/20 15:39 100 01/30/20 15:00 100 01/30/20 14:35 100 01/30/20 14:20 100 01/30/20 14:05 97 01/30/20 13:55 100 01/30/20 13:45 100 01/30/20 13:35 99 01/30/20 13:26 100 01/30/20 10:04 100 01/30/20 09:26 98 Pain Intensity Right Knee: Pain Intensity: 0 Notes Mental Status: alert / awake / arousable and participated in evaluation Patient Amnestic to Procedure: Yes Nausea / Vomiting: adequately controlled Pain: adequately controlled Airway Patency, RR, SpO2: stable & adequate BP & HR: stable & adequate Hydration State: stable & adequate Neuraxial Anesthesia: was administered and sensory block resolved Anesthetic Complications: no major complications apparent and Pt Satisfied with anesthetic care
[2020-01-31] MEDS ORDERED: MULTIVITAMIN TAB PO SCH (09:00)
[2020-01-31] MEDS ORDERED: IRBESARTAN 150 MG TAB PO SCH (09:00)
[2020-01-31] MEDS ORDERED: hydroCHLOROthiazide 25 MG TAB PO SCH (09:00)
[2020-01-31] MEDS: OXYCODONE HCL IR 5 MG TAB (IMMEDIATE RELEASE) PO PRN ×2 (09:34→13:48)
== END 2020-01-31 14:25 | disposition home health service (06) ==
LOC: ASU 09:04 → INTOOBSV 13:27 → 3E 13:27